=== PATIENT | male | born 1970 | race Caucasian/White ===

== ENCOUNTER 2017-10-24 13:58 | Inpatient (IN) | END 2017-10-25 14:30 | disposition home or self-care (01) | DRG 639 ==

== ENCOUNTER 2018-12-26 11:46 | Emergency (ER) | payer SELFPAY ==
[~2018-12-26] VITALS: Ht 175.3 cm; Wt 93.2 kg
[~2018-12-26 11:46] MED LIST: GLIM4TAB3 PO; LORA-441 PO; LOSA50TA14 PO; MTF1000T PO
[2018-12-26 11:55] VITALS: Ht 175.3 cm; Wt 93.2 kg
[2018-12-26] MEDS ORDERED: SOD CHLORIDE 0.9% 1,000 ML IV STA (12:05)
[2018-12-26] MEDS ORDERED: LORAZEPAM 2 MG INJ IV ONE (12:30)
[2018-12-26 13:55] VITALS: BP 136/89; PULSE 95; RESP 20
== END 2018-12-26 13:50 | disposition home or self-care (01) ==
LOC: E/R 11:46
DX: F41.9 Anxiety disorder, unspecified (principal); E86.0 Dehydration; I10 Essential (primary) hypertension; E11.9 Type 2 diabetes mellitus without complications; Z79.84 Long term (current) use of oral hypoglycemic drugs
CPT/HCPCS: 36415; 80053; 83690; 84484; 85025; 93005; 96374; 99284; J2060; J7030